=== PATIENT | female | born 1960 | race Caucasian/White ===

== ENCOUNTER → 2022-03-07 | Day surgery (SDC) | payer OTHER ==
[~2022-03-07] VITALS: Ht 157.5 cm; Wt 76.2 kg
[~2022-03-07] MED LIST: CLARITIN10 MG PO; CYCLOBENZAPRINE10 MG PO; DULOXETINE HCL60 MG PO; EZETIMIBE10 MG PO; HCTZ25 MG PO; LEVOTHYROXINE25 MCG PO; MYRBETRIQ25 MG PO; NORCO 5-325 TA1 EACH PO; OMEPRAZOLE 20MG20 MG PO; PREDNISONE20 MG PO; SENNA S TABLET1 EACH PO; SERTRALINE HCL50 MG PO
[2022-03-07 09:59] LABS: HGB 15.5 g/dl (12.5-16.0); MCH 31.4 pg (25.0-31.0); MCV 95.1 fL (78.0-100.0); MPV 11.4 fL (6.0-9.5); RBC 4.94 M/uL (4.20-5.40); RDW 12.8 % (11.5-14.0); WBC 10.2 K/uL (4.0-10.5)
[2022-03-07 10:37] LABS: ALBUMIN 3.3 g/dL (3.4-5.0); BILIRUBIN - TOTAL 0.4 mg/dL (0.2-1.0); BUN/CREAT RATIO (CALC) 26.8 RATIO; CREATININE 0.97 mg/dL (0.51-0.95); GLOBULIN (CALCULATION) 3.5 g/dL; POTASSIUM 3.4 mmol/L (3.5-5.1); TOTAL PROTEIN 6.8 g/dL (6.4-8.2)
== END | disposition home or self-care (01) ==
LOC: FAS 09:26
PROVIDERS: Surgery
DX: L72.3 Sebaceous cyst (principal); E78.5 Hyperlipidemia, unspecified; I10 Essential (primary) hypertension; K21.9 Gastro-esophageal reflux disease without esophagitis; E03.9 Hypothyroidism, unspecified; F41.9 Anxiety disorder, unspecified; F32.A Depression, unspecified; Z88.0 Allergy status to penicillin; Z88.2 Allergy status to sulfonamides; Z88.1 Allergy status to other antibiotic agents; Z79.899 Other long term (current) drug therapy
CPT/HCPCS: 36415; 80053; J2250; J2405; J2704; J3010; J7120